=== PATIENT | female | born 1980 | race African-American/Black ===

== ENCOUNTER 2016-07-13 10:44 | Emergency (ER) | payer OTHER ==
--- NOTE | ~2016-07-13 | CR7 ---
[facility] A Service of [facility] RADIOLOGY TEXT RESULTS PATIENT: UCHE HICKS LOCATION: [facility] : 84 UNIT #: [id number] AGE: [address]: Manuel Morgan MD SEX: F ORDER DR: [id number] [facility] [address] [place], [place] [address] [id number] MR#: [id number] Acc #: [id number] NAME: UCHE HICKS : 1980 SEX: F STUDY DATE/TIME: 07/13/2016 12:23 UNIT: DARIO ROOM: STUDY DESCRIPTION: CR Abdomen Single AP View Attending Physician: Manuel Morgan M.D. Ordering Physician: Manuel Morgan M.D. Primary Care Physician: Linda Santos M.D. MEDICAL IMAGING REPORT This report is preliminary unless electronic signature is present EXAM KUB HISTORY Epigastric pain with nausea and vomiting over the past week. Previous Lap-band surgery. Concern for slipping of the band. TECHNIQUE A single AP view of the abdomen is obtained. FINDINGS The angle of the band with respect to the long axis of the spine has increased from 72 degrees to 87 degrees when compared to the previous study of 04/01/2015. The band also projects higher with respect to the diaphragm. This suggests slippage of the band toward the gastroesophageal junction. The band is also rotated differently than it was on a previous examination. The catheter extends to the right of the stomach rather than to the left of the stomach on the previous study in 2016. The bowel gas pattern is normal. IMPRESSION There is suggestion of slipping of the band. The band has rotated since previous examination and its configuration is more horizontal by about 15 degrees. It also projects closer to the diaphragm suggesting slippage toward the gastroesophageal junction. Dictated by... Marco Antonio Gill M.D. THIS IS AN ELECTRONICALLY VERIFIED REPORT Marco Antonio Gill M.D. at 07/13/2016 4:29 PM [facility] A Service of [facility] RADIOLOGY TEXT RESULTS PATIENT: UCHE HICKS [id number] : [birth year] UNIT #: [id number] AGE: [address]: Manuel Morgan MD SEX: F ORDER DR: DARRYN/sara TD: 07/13/2016 13:06 JOB #: [id number] MEDICAL IMAGING REPORT Page 1 of 1 COPY
--- NOTE | ~2016-07-13 | EKG ---
PATIENT: UCHE HICKS UNIT #: [id number] Ventricular Rate: 84 BPM Atrial Rate: 84 BPM P-R Interval: 154 ms QRS Duration: 84 ms Q-T Interval: 358 ms QTC Calculation(Bezet): 423 ms P Zamora: 23 degrees Calculated R Zamora: 17 degrees Calculated T Zamora: 11 degrees Diagnosis Line: Normal sinus rhythm Diagnosis Line: Cannot rule out , old Inferior infarct (cited on Diagnosis Line: or before 13-JUL-2016) Diagnosis Line: Abnormal ECG Diagnosis Line: When compared with ECG of 17-MAR-2015 08:47, Diagnosis Line: No significant change was found Diagnosis Line: Confirmed by DAY DUBON MD ([id number]) on 07/14/2016 Diagnosis Line: 4:49:13 AM INTERPRETING MD: LING STRICKLAND
[~2016-07-13 10:44] MED LIST: NO MEDICATIONS
[2016-07-13 11:10] LABS: BASOPHIL% 0.7 % (0-2.5); EOSINOPHIL# 0.1 X10e3 (0-0.7); EOSINOPHIL% 2.3 % (0.0-7.0); HEMATOCRIT 28.8 % (35.0-45.0); HEMOGLOBIN 9.1 gm/dL (12.0-16.0); LYMPHOCYTE# 1.6 X10e3 (1.0-3.5); LYMPHOCYTE% 36.3 % (17.0-45.0); MEAN CELL VOLUME 72.9 FL (83-96); MEAN CORPUSCULAR HGB CONC 31.6 g/dL (30-36); MEAN PLATELET VOLUME 7.2 FL (6.5-11.5); MONOCYTE# 0.3 X10e3 (0-1.0); MONOCYTE% 7.4 % (3.0-12.0); NEUTROPHIL# 2.4 X10e3 (1.5-7.1); NEUTROPHIL% 53.3 % (40-75); PLATELET COUNT 300 X10e3 (140-420); RED BLOOD COUNT 3.95 X10e (3.90-5.30); RED CELL DISTRIBUTION WIDTH 15.9 % (11.0-15.5); WHITE BLOOD COUNT 4.5 X10e3 (4.0-10.5)
[2016-07-13 11:12] LABS: DIFF IND NO
[2016-07-13 11:34] LABS: ALBUMIN SERUM 3.3 g/dL (3.5-5.0); ALKALINE PHOSPHATASE 65 U/L (32-92); ALT (SGPT) 8 U/L (10-40); AST (SGOT) 13 U/L (10-42); BILIRUBIN,TOTAL 0.6 mg/dL (0.2-2.0); BLOOD UREA NITROGEN 11 mg/dL (9-23); BUN/CREATININE RATIO 15.71; CALCIUM SERUM 8.3 mg/dL (8.4-10.2); CARBON DIOXIDE 22 mmol/L (22-31); CHLORIDE 106 mmol/L (100-111); CREATININE SERUM 0.7 mg/dL (0.6-1.4); GLUCOSE FASTING 88 mg/dL (70-110); LIPASE 13 U/L (22-51); POTASSIUM 3.8 mmol/L (3.5-5.1); PROTEIN TOTAL SERUM 6.8 g/dL (6.0-8.3); SODIUM 136 mmol/L (135-145)
[2016-07-13 11:35] LABS: BILIRUBIN, DIRECT <0.1 mg/dL (0.0-0.2); BILIRUBIN,INDIRECT 0.5 mg/dL (0.0-0.9)
== END 2016-07-13 16:19 | disposition home or self-care (01) ==
LOC: CED 10:44
PROVIDERS: Emergency Medicine
DX: T85.518A Breakdown (mechanical) of other gastrointestinal prosthetic devices, implants and grafts, initial encounter (principal); K21.9 Gastro-esophageal reflux disease without esophagitis
CPT/HCPCS: 36415; 74000; 80048; 80076; 83690; 84703; 85025; 93005; 99284; C9113; J2405